=== PATIENT | female | born 1960 | race Caucasian/White ===

== ENCOUNTER 2023-09-21 07:59 | Outpatient (CLI) | payer MEDICARE, SELFPAY ==
--- NOTE | ~2023-09-21 | MR_ITS ---
MRI of the right knee Clinical history: Pain Technique: Coronal proton density and proton density-weighted images, sagittal proton-density and T2 fat-sat images, and axial proton-density fat-saturated images were acquired. Findings: Anterior and posterior cruciate ligaments are intact. Medial collateral ligament and the la teral collateral ligament complex are intact. Popliteus tendon is intact. There is a large radial tear at the posterior root of the medial meniscus. No definite lateral menisc al tear seen. There is diffuse grade IV chondromalacia on both sides of the medial compartment, probable mild media l compartment narrowing. There is mild chondromalacia of the lateral compartment. There is extensive high-grade chondral malacia patella. There is extensive moderate to high-grade contemplation the femo ral trochlea, especially centrally and along the bilateral facet. Prominent tricompartmental osteophy fran are present. Extensor mechanism is intact. Minimal joint effusion present. No Diaz's cyst. Impression: Radial tear at the posterior root of the medial meniscus. Advanced tricompartmental osteoarthritis, as detailed above, worst in the and patellofemoral compartm ents. Reviewed, dictated and finalized at location M. Impression: Radial tear at the posterior root of the medial meniscus. Advanced tricompartmental osteoarthritis, as detailed above, worst in the and p atellofemoral compartments.
== END 2023-09-21 08:00 ==
PROVIDERS: PCP Orthopaedic Surgery; Visit Provider Orthopaedic Surgery
DX: M17.11 Unilateral primary osteoarthritis, right knee (principal)
CPT/HCPCS: 73721